=== PATIENT | female | born 1965 | race Caucasian/White ===

== ENCOUNTER → 2017-01-07 09:17 | Outpatient (CLI) | payer MEDICARE ==
[2017-01-07 10:22] LABS: ALBUMIN 3.9 g/dL (3.4-5.0); BILIRUBIN - DIRECT 0.09 mg/dL (0.00-0.30); BILIRUBIN - INDIRECT 0.41 mg/dL (0.00-1.00); BILIRUBIN - TOTAL 0.5 mg/dL (0.2-1.3)
== END | disposition home or self-care (01) ==
LOC: D.US 09:17
PROVIDERS: Internal Medicine Gastroenterology
DX: K74.0 Hepatic fibrosis (principal); K70.11 Alcoholic hepatitis with ascites

== ENCOUNTER → 2017-02-23 11:15 | Outpatient (CLI) | payer MEDICARE ==
[2017-02-23 11:46] LABS: BASOPHILS 0.7 % (0-2); EOSINOPHILS 2.3 % (0-7); HEMATOCRIT 40.5 % (36.0-48.0); HEMOGLOBIN 13.6 g/dL (12-16); IMMATURE GRANULOCYTES 0.2 % (0-5); LYMPHOCYTES 28.4 % (15-50); MCH 30.5 pg (26.0-34.0); MCHC 33.6 g/dL (31.0-37.0); MCV 90.8 fL (80.0-100.0); MEAN PLATELET VOLUME 9.5 fL (7.4-10.4); MONOCYTES 13.8 % (2-11); NEUTROPHILS 54.6 % (40-80); PLATELET COUNT 292 10x3/uL (130-400); RBC 4.46 10x6/uL (4.00-5.40); RDW 12.4 % (11.5-14.5); WBC 5.6 10x3/uL (4.8-10.8)
[2017-02-23 12:19] LABS: ALBUMIN 4.1 g/dL (3.4-5.0); ANION GAP 10.9 mmol/L (8-16); BILIRUBIN - TOTAL 0.69 mg/dL (0.2-1.3); CALCIUM 9.8 mg/dL (8.5-10.1); CARBON DIOXIDE 29.3 mmol/L (21.0-32.0); POTASSIUM - SERUM 4.2 mmol/L (3.5-5.1); PROTEIN - SERUM 7.9 g/dL (6.4-8.2); T4 THYROXIN - FREE 1.28 ng/dL (0.76-1.46); THYROID STIMULATING HORMONE 0.67 uIU/mL (0.36-3.74)
== END | disposition home or self-care (01) ==
LOC: D.LAB 02-22 15:45
PROVIDERS: Family Medicine
DX: E03.9 Hypothyroidism, unspecified (principal); R89.9 Unspecified abnormal finding in specimens from other organs, systems and tissues

== ENCOUNTER → 2017-09-29 08:39 | Outpatient (CLI) | payer MEDICARE | END | disposition home or self-care (01) | LOC: D.CT 08:39 | DX: P38.9 Omphalitis without hemorrhage (principal) ==

== ENCOUNTER → 2018-01-18 07:56 | Outpatient (CLI) | payer MEDICARE ==
[2018-01-18 10:27] LABS: ALBUMIN 3.8 g/dL (3.4-5.0); BILIRUBIN - DIRECT 0.1 mg/dL (0.00-0.30); BILIRUBIN - INDIRECT 0.3 mg/dL (0.00-1.00); BILIRUBIN - TOTAL 0.4 mg/dL (0.2-1.3); PROTEIN - SERUM 7.1 g/dL (6.4-8.2)
== END | disposition home or self-care (01) ==
LOC: D.US 07:56
PROVIDERS: Internal Medicine Gastroenterology
DX: K70.10 Alcoholic hepatitis without ascites (principal); R18.8 Other ascites; K70.2 Alcoholic fibrosis and sclerosis of liver

== ENCOUNTER → 2018-04-12 18:50 | Outpatient (CLI) | payer MEDICARE | END | disposition home or self-care (01) | LOC: D.MAMMO 14:30 | DX: Z12.31 Encounter for screening mammogram for malignant neoplasm of breast (principal) ==

== ENCOUNTER → 2018-04-13 13:10 | Outpatient (CLI) | payer MEDICARE | END | disposition home or self-care (01) | LOC: D.MRI 13:10 | DX: M54.16 Radiculopathy, lumbar region (principal) ==

== ENCOUNTER → 2018-06-28 09:24 | Outpatient (CLI) | payer MEDICARE ==
[~2018-06-28] VITALS: Ht 157.5 cm; Wt 61.2 kg
[2018-06-28 10:03] VITALS: Ht 157.5 cm; Wt 61.2 kg
== END | disposition home or self-care (01) ==
LOC: D.FANS 06-06 09:00
DX: R63.5 Abnormal weight gain (principal)

== ENCOUNTER → 2019-01-11 10:27 | Outpatient (CLI) | payer MEDICARE ==
[2018-06-28 10:03] VITALS: BMI 24.7
[2019-01-11 11:07] LABS: ANION GAP 10.3 mmol/L (8-16); BILIRUBIN - TOTAL 0.53 mg/dL (0.2-1.3); CALCIUM 9.9 mg/dL (8.5-10.1); CARBON DIOXIDE 29.9 mmol/L (21.0-32.0); CREATININE - SERUM 1.2 mg/dL (0.6-1.3); POTASSIUM - SERUM 4.2 mmol/L (3.5-5.1); PRE-ALBUMIN 25.1 mg/dL (18.0-35.7); PROTEIN - SERUM 8.1 g/dL (6.4-8.2)
== END | disposition home or self-care (01) ==
LOC: D.LAB 10:27
PROVIDERS: ATTEND Surgery
DX: N95.9 Unspecified menopausal and perimenopausal disorder (principal); E03.9 Hypothyroidism, unspecified; E11.9 Type 2 diabetes mellitus without complications

== ENCOUNTER → 2019-05-11 11:00 | Outpatient (CLI) | payer MEDICARE ==
[2018-06-28 10:03] VITALS: BMI 24.7
== END | disposition home or self-care (01) ==
LOC: D.LAB 11:00
PROVIDERS: ATTEND Family Medicine
DX: E83.52 Hypercalcemia (principal)

== ENCOUNTER → 2019-12-03 15:04 | Outpatient (CLI) | payer MEDICARE ==
[2018-06-28 10:03] VITALS: BMI 24.7
[2019-12-03 16:29] LABS: T4 THYROXIN - FREE 0.7 ng/dL (0.76-1.46); THYROID STIMULATING HORMONE 19.33 uIU/mL (0.36-3.74)
== END | disposition home or self-care (01) ==
LOC: D.LAB 15:04
PROVIDERS: ATTEND Family Medicine
DX: E03.9 Hypothyroidism, unspecified (principal)

== ENCOUNTER → 2021-01-02 09:12 | Outpatient (CLI) | payer MEDICARE ==
[2018-06-28 10:03] VITALS: BMI 24.7
== END | disposition home or self-care (01) ==
LOC: D.LAB 09:12
PROVIDERS: ATTEND Surgery
DX: E51.9 Thiamine deficiency, unspecified (principal); E55.9 Vitamin D deficiency, unspecified; Z13.21 Encounter for screening for nutritional disorder; D50.9 Iron deficiency anemia, unspecified; E03.9 Hypothyroidism, unspecified